=== PATIENT | male | born 1970 | race Caucasian/White ===

== ENCOUNTER 2024-04-07 12:22 | Outpatient (CLI) | payer OTHER, SELFPAY ==
[2024-04-07 12:48] LABS: Basophils % 0.6 % (0.1-2.0); Eosinophils % 0.6 % (0.1-12.0); Hematocrit 43.6 % (42.0-52.0); Hemoglobin 15.2 g/dL (14.1-18.0); Lymphocytes # 1.2 K/mm3 (0.7-4.5); Lymphocytes % 21.1 % (10-50); Mean Corpuscular Hemoglobin 33.7 pg (27.0-31.2); Mean Corpuscular Volume 96.5 fl (80-94); Mean Platelet Volume 7.7 fl (7.4-10.4); Monocytes # 0.4 K/mm3 (0.1-1.0); Neutrophils # 3.8 K/mm3 (1.8-7.8); Neutrophils % 69.7 % (37.0-80.0); Platelet Count 179 K/mm3 (142-424); Red Blood Count 4.52 M/mm3 (4.60-6.20); Red Cell Distribution Width 13.9 % (11.5-17.5); Reticulocyte % (Auto) 1.5 % (0.9-3.2); White Blood Count 5.4 K/mm3 (4.8-10.8)
[2024-04-07 14:26] LABS: Vitamin B12 574 pg/mL (239-931)
[2024-04-09 12:28] LABS: Peripheral Smear Review Scanned Result
== END 2024-04-07 23:59 | disposition home or self-care (01) ==
LOC: LAB 12:24
PROVIDERS: PCP Family Medicine; Visit Provider Internal Medicine Medical Oncology
DX: Z86.2 Personal history of diseases of the blood and blood-forming organs and certain disorders involving the immune mechanism (principal)
CPT/HCPCS: 36415; 82607; 82746; 85025; 85044